=== PATIENT | male | born 1955 ===

== ENCOUNTER 2021-01-25 07:51 | Day surgery (SDC) | payer OTHER | END 2021-01-25 11:35 | disposition home or self-care (01) | LOC: AMB-ENDOS 07:51 | PROVIDERS: ATTEND Surgery | DX: D12.0 Benign neoplasm of cecum (principal); D12.2 Benign neoplasm of ascending colon; D12.3 Benign neoplasm of transverse colon; D12.8 Benign neoplasm of rectum; Z20.822 Contact with and (suspected) exposure to COVID-19 ==